=== PATIENT | male | born 1955 | race Caucasian/White ===

== ENCOUNTER → 2017-06-23 | Outpatient (CLI) | payer OTHER ==
[~2017-06-23] MED LIST: COLLAGENASE OINTMENT 30 GM TUBE ONE; LIDOCAINE VISC 2% SOLN 15 ML UDC ONE; MUPIROCIN 2% OINT 22 GM TUBE ONE
== END ==
LOC: WCC 10:26
PROVIDERS: ATTEND Family Medicine
DX: E11.621 Type 2 diabetes mellitus with foot ulcer (principal); S81.802A Unspecified open wound, left lower leg, initial encounter; S91.302A Unspecified open wound, left foot, initial encounter; G89.29 Other chronic pain; R60.0 Localized edema; B96.89 Other specified bacterial agents as the cause of diseases classified elsewhere; E78.5 Hyperlipidemia, unspecified; X58.XXXA Exposure to other specified factors, initial encounter

== ENCOUNTER → 2017-06-25 | Outpatient (CLI) | payer OTHER | LOC: WCC 11:00 | PROVIDERS: ATTEND Family Medicine | DX: E11.621 Type 2 diabetes mellitus with foot ulcer (principal); S91.302A Unspecified open wound, left foot, initial encounter; S81.802A Unspecified open wound, left lower leg, initial encounter; R60.0 Localized edema; X58.XXXA Exposure to other specified factors, initial encounter; G89.29 Other chronic pain; E78.5 Hyperlipidemia, unspecified; B96.89 Other specified bacterial agents as the cause of diseases classified elsewhere ==

== ENCOUNTER → 2017-06-29 | Outpatient (CLI) | payer OTHER | LOC: WCC 10:00 | PROVIDERS: ATTEND Family Medicine | DX: E11.621 Type 2 diabetes mellitus with foot ulcer (principal); S81.802A Unspecified open wound, left lower leg, initial encounter; S91.302A Unspecified open wound, left foot, initial encounter; G89.29 Other chronic pain; R60.0 Localized edema; B96.89 Other specified bacterial agents as the cause of diseases classified elsewhere; X58.XXXA Exposure to other specified factors, initial encounter; E78.5 Hyperlipidemia, unspecified | CPT/HCPCS: 36415; 82948 ==

== ENCOUNTER → 2017-07-02 | Outpatient (CLI) | payer OTHER ==
[~2017-07-02] MED LIST changes: -LIDOCAINE VISC 2% SOLN 15 ML UDC ONE; +MINERAL OIL/PETROLAT/GLYCERI 6OZ BTL ONE
== END ==
LOC: WCC 11:05
PROVIDERS: ATTEND Family Medicine
DX: E11.621 Type 2 diabetes mellitus with foot ulcer (principal); S81.802A Unspecified open wound, left lower leg, initial encounter; S91.302A Unspecified open wound, left foot, initial encounter; G89.29 Other chronic pain; R60.0 Localized edema; I87.2 Venous insufficiency (chronic) (peripheral); B96.89 Other specified bacterial agents as the cause of diseases classified elsewhere; E78.5 Hyperlipidemia, unspecified; X58.XXXA Exposure to other specified factors, initial encounter

== ENCOUNTER → 2017-07-07 | Outpatient (CLI) | payer OTHER ==
[~2017-07-07] MED LIST changes: +LIDOCAINE VISC 2% SOLN 15 ML UDC ONE; -MINERAL OIL/PETROLAT/GLYCERI 6OZ BTL ONE
== END ==
LOC: WCC 10:32
PROVIDERS: ATTEND Family Medicine
DX: E11.621 Type 2 diabetes mellitus with foot ulcer (principal); S81.802A Unspecified open wound, left lower leg, initial encounter; S91.302A Unspecified open wound, left foot, initial encounter; I87.2 Venous insufficiency (chronic) (peripheral); G89.29 Other chronic pain; B96.89 Other specified bacterial agents as the cause of diseases classified elsewhere; E78.5 Hyperlipidemia, unspecified; X58.XXXA Exposure to other specified factors, initial encounter
CPT/HCPCS: 36415; 82948

== ENCOUNTER → 2017-07-14 | Outpatient (CLI) | payer OTHER ==
[~2017-07-14] MED LIST changes: -LIDOCAINE VISC 2% SOLN 15 ML UDC ONE; +LIDOCAINE/PRILOCAINE 2.5-2.5% KIT ONE; +MINERAL OIL/PETROLAT/GLYCERI 6OZ BTL ONE
== END ==
LOC: WCC 10:32
PROVIDERS: ATTEND Family Medicine
DX: E11.621 Type 2 diabetes mellitus with foot ulcer (principal); S81.802A Unspecified open wound, left lower leg, initial encounter; S91.302A Unspecified open wound, left foot, initial encounter; B96.89 Other specified bacterial agents as the cause of diseases classified elsewhere; E78.5 Hyperlipidemia, unspecified; G89.29 Other chronic pain; I87.2 Venous insufficiency (chronic) (peripheral); R60.0 Localized edema; X58.XXXA Exposure to other specified factors, initial encounter

== ENCOUNTER → 2017-07-28 | Outpatient (CLI) | payer OTHER ==
[~2017-07-28] MED LIST changes: -COLLAGENASE OINTMENT 30 GM TUBE ONE; +LIDOCAINE VISC 2% SOLN 15 ML UDC ONE; -LIDOCAINE/PRILOCAINE 2.5-2.5% KIT ONE; -MINERAL OIL/PETROLAT/GLYCERI 6OZ BTL ONE
== END ==
LOC: WCC 13:59
PROVIDERS: ATTEND Family Medicine
DX: E11.621 Type 2 diabetes mellitus with foot ulcer (principal); S81.802A Unspecified open wound, left lower leg, initial encounter; S91.302A Unspecified open wound, left foot, initial encounter; G89.29 Other chronic pain; I87.2 Venous insufficiency (chronic) (peripheral); B96.89 Other specified bacterial agents as the cause of diseases classified elsewhere; E78.5 Hyperlipidemia, unspecified; X58.XXXA Exposure to other specified factors, initial encounter

== ENCOUNTER → 2017-08-11 | Outpatient (CLI) | payer OTHER | LOC: WCC 10:36 | PROVIDERS: ATTEND Family Medicine | DX: E11.621 Type 2 diabetes mellitus with foot ulcer (principal); S81.802A Unspecified open wound, left lower leg, initial encounter; B96.89 Other specified bacterial agents as the cause of diseases classified elsewhere; E78.5 Hyperlipidemia, unspecified; G89.29 Other chronic pain; I87.2 Venous insufficiency (chronic) (peripheral); X58.XXXA Exposure to other specified factors, initial encounter ==

== ENCOUNTER 2018-02-07 13:56 | Observation (INO) | payer OTHER ==
[~2018-02-07] VITALS: Ht 188 cm; Wt 86.2 kg
[2018-02-07] MEDS ORDERED: ASPIRIN 325 MG TAB PO ONE (15:00)
[2018-02-07] MEDS ORDERED: ASPIR 8181 MG PO (15:16)
[2018-02-07] MEDS ORDERED: SODIUM CHLORIDE FLUSH 10 ML SYR INJ PRN (16:15)
[2018-02-07] MEDS: HYDRALAZINE HCL 20 MG/ML VIAL IV PRN (21:57)
[2018-02-07 23:21] VITALS: BP 202/104
[2018-02-07 23:49] LABS: CREATINE KINASE MB 1.7 ng/mL (0-5.0)
[2018-02-08] VITALS (8 sets, daily range): BP systolic 133–192; BP diastolic 80–108
[2018-02-08] MEDS: HYDRALAZINE HCL 20 MG/ML VIAL IV PRN (04:27)
[2018-02-08 06:31] LABS: CREATINE KINASE MB 1.5 ng/mL (0-5.0)
[2018-02-08] MEDS ORDERED: LISINOPRIL 10 MG TAB PO SCH (09:00)
[2018-02-08] MEDS ORDERED: ASPIRIN 81 MG CHEW TAB PO SCH (09:00)
[2018-02-08 16:02] LABS: ANION GAP 16.3 mmol/L (8-16); BLOOD UREA NITROGEN 13 mg/dL (7-26); BUN/CREATININE RATIO 14 (6-25); CALCIUM 9.1 mg/dL (8.4-10.2); CARBON DIOXIDE 25 mmol/L (22-29); CHLORIDE 99 mmol/L (98-107); CREATININE, SERUM 0.93 mg/dL (0.72-1.25); EST GLOMERULAR FILTRATION RATE > 60 ML/MIN (60-); GLUCOSE 116 mg/dL (74-118); POTASSIUM 3.3 mmol/L (3.5-5.1); SODIUM 137 mmol/L (136-145)
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
--- NOTE | 2018-02-08 20:18 | Diagnostic Imaging Report ---
EXAM: CTA Chest without and WITH contrast 02/08/2018 2:43 PM INDICATION: Left-sided chest pain and hypertension concern for aortic dissection. COMPARISON: None TECHNIQUE: Chest was scanned utilizing a multidetector helical scanner from the lung apex through the level of the adrenal glands without and with administration of IV contrast. Coronal and sagittal reformations were obtained. Routine protocol was performed. For optimization of anatomic evaluation, multiplanar reconstruction, maximum intensity projections, and advanced 3-D off-line postprocessing were performed on a dedicated stand-alone workstation. IV CONTRAST: 100 mL of Isovue-370 RADIATION DOSE: Total DLP: 874.30 mGy*cm Estimated effective dose: (DLP x 0.014 x size factor) mSv COMPLICATIONS: None FINDINGS: LINES/ TUBES: None. LUNGS AND AIRWAYS: No consolidations or suspicious nodules. Airways are normal. PLEURA: Biapical pleural-parenchymal opacities suggestive of scarring, right greater than left. HEART AND MEDIASTINUM: The thyroid gland is normal. No mediastinal, hilar or axillary lymphadenopathy. The heart is normal in size.. There is no pericardial effusion. There are mild atherosclerotic calcifications of the coronary arteries. No aortic dissection. No evidence of intramural hematoma. No filling defects within the pulmonary arteries to the resolved segmental level to suggest pulmonary embolism. UPPER ABDOMEN: Limited non-contrast views of the upper abdomen show low attenuation of the hepatic parenchyma suggestive of steatosis. The adrenal glands are normal. BONES: The visualized bony thorax is within normal limits. SOFT TISSUES: Unremarkable. IMPRESSION: No evidence of aortic dissection. No acute thoracic abnormality. Mild CAD. Signed by: Dr. Felicia Stahl M.D. on 02/08/2018 8:14 PM
[2018-02-08] MEDS ORDERED: SODIUM CHLORIDE 0.9% 100 ML 100 ML ONE (21:27)
[2018-02-08] MEDS ORDERED: IOPAMIDOL 370 MG/ML 200 ML INFUS..BTL INJ ONE (21:27)
[2018-02-09 00:54] VITALS: BP 128/68
[2018-02-09 05:00] VITALS: BP 159/87
[2018-02-09] MEDS ORDERED: POTASSIUM CHLORIDE 10 MEQ TABCR PO ONE (05:15)
[2018-02-09 08:33] VITALS: BP 150/91
[2018-02-09 08:38] VITALS: BP 150/91
[2018-02-09] MEDS ORDERED: CHLORTHALIDONE 25 MG TAB PO SCH (09:00)
[2018-02-09] MEDS ORDERED: LISINOPRIL 10 MG TAB PO SCH (09:00)
== END 2018-02-09 09:33 | disposition home or self-care (01) ==
LOC: FSED 13:56 → ERHOLD 19:07 → IMCU 22:40
PROVIDERS: ADMIT Internal Medicine; ATTEND Internal Medicine
DX: R07.89 Other chest pain (principal); R03.0 Elevated blood-pressure reading, without diagnosis of hypertension; M25.512 Pain in left shoulder; E78.5 Hyperlipidemia, unspecified; I83.93 Asymptomatic varicose veins of bilateral lower extremities; I87.2 Venous insufficiency (chronic) (peripheral)
CPT/HCPCS: 36415 ×2; 71046; 71275; 80048; 80053; 82550 ×2; 82553 ×2; 84484 ×2; 85379; 93005 ×2; 93306; 99284; G0378 ×3; J0360 ×2; Q9967

== ENCOUNTER → 2018-02-07 | Emergency (ER) | payer SELFPAY ==
[~2018-02-07] MED LIST changes: +ASPIR 8181 MG PO; +HYDRALAZINE HCL 20 MG/ML VIAL ONE; -LIDOCAINE VISC 2% SOLN 15 ML UDC ONE; -MUPIROCIN 2% OINT 22 GM TUBE ONE
== END | disposition left against medical advice (07) ==
LOC: ER 13:19
DX: I10 Essential (primary) hypertension (principal)
CPT/HCPCS: J0360